=== PATIENT | female | born 1975 | race Hispanic/Latino ===

== ENCOUNTER → 2018-06-26 | Outpatient (CLI) | payer OTHER ==
--- NOTE | 2018-06-29 08:56 | Diagnostic Imaging Report ---
#[id number] - MGSCRBIL #BILATERAL FIRST EVER DIGITAL SCREENING MAMMOGRAM WITH CAD: 06/26/2018 CLINICAL: Routine screening. Baseline exam. No prior exams were available for comparison. Current study contains 4 films. The tissue of both breasts is heterogeneously dense. This may lower the sensitivity of mammography. Current study was also evaluated with a Computer Aided Detection (CAD) system. There is a benign calcification in both breasts. No significant masses, calcifications, or other findings are seen in either breast. IMPRESSION: BENIGN There is no mammographic evidence of malignancy. A 1 year screening mammogram is recommended. The patient will be notified by letter of the results. Minesh oliver/pdamini:06/28/2018 16:10:19 Medical Collections Specialist: Roseline NAYAK)(M), [facility] letter sent: Normal Exam Mammogram BI-RADS: 2 Benign
== END ==
LOC: MAMMO 15:05
PROVIDERS: ATTEND Internal Medicine
DX: Z12.31 Encounter for screening mammogram for malignant neoplasm of breast (principal)
CPT/HCPCS: 77067

== ENCOUNTER 2024-07-15 20:16 | Emergency (ER) | payer OTHER ==
[~2024-07-15] VITALS: Ht 152.4 cm; Wt 78.5 kg
[2024-07-15 20:30] VITALS: TEMP 98.4
[2024-07-15] MEDS ORDERED: TRAMADOL HCL 50 MG TAB ONE (20:46)
[2024-07-15] MEDS: TRAMADOL HCL 50 MG TAB PO STA (20:48)
[2024-07-15] MEDS ORDERED: ULTRAM 50MG50 MG PO (22:42)
[2024-07-15 22:43] VITALS: PULSE 79; RESP 16; O2SAT 100
== END 2024-07-15 22:45 | disposition home or self-care (01) ==
LOC: ER 20:20
DX: M25.511 Pain in right shoulder (principal); R07.89 Other chest pain; S10.81XA Abrasion of other specified part of neck, initial encounter; V43.52XA Car driver injured in collision with other type car in traffic accident, initial encounter; Y92.488 Other paved roadways as the place of occurrence of the external cause
CPT/HCPCS: 71046; 93005; 99283